=== PATIENT | female | born 1935 | race Caucasian/White ===

== ENCOUNTER 2019-01-03 15:25 | Emergency (ER) | payer MEDICARE, OTHER ==
[2019-01-03 15:29] VITALS: BMI 24.5
[2019-01-03] MEDS ORDERED: LOVASTATIN10 MG PO (15:31)
[2019-01-03] MEDS ORDERED: PRINIVIL10 MG PO (15:32)
[2019-01-03] MEDS ORDERED: TIROSINT50 MCG PO (15:32)
[2019-01-03] MEDS ORDERED: ALENDRONATE SOD10 MG PO (15:33)
[2019-01-03] MEDS ORDERED: BAYER CHEWABLE81 MG PO (15:38)
[2019-01-03] MEDS ORDERED: VOLTAREN75 MG PO (16:30)
[2019-01-03 18:05] VITALS: BP 155/76
== END 2019-01-03 18:05 | disposition home or self-care (01) ==
LOC: D.ER 15:25
DX: S20.212A Contusion of left front wall of thorax, initial encounter (principal); W18.31XA Fall on same level due to stepping on an object, initial encounter; Y93.01 Activity, walking, marching and hiking; Y92.89 Other specified places as the place of occurrence of the external cause; S51.012A Laceration without foreign body of left elbow, initial encounter; S51.011A Laceration without foreign body of right elbow, initial encounter